=== PATIENT | female | born 1950 | race Caucasian/White ===

== ENCOUNTER → 2017-01-25 | Outpatient (CLI) | payer BC ==
--- NOTE | 2017-01-25 14:47 | DIAGNOSTIC IMAGING REPORT ---
LEFT KNEE 3 VIEWS HISTORY: Left knee pain COMPARISON: None. FINDINGS: There is no fracture or dislocation. No significant knee effusion. Mild chondrocalcinosis within the medial compartment. Mild osteoarthritis within the medial and patellofemoral compartments of the left knee. No radiopaque foreign bodies. IMPRESSION: 1. Mild osteoarthritis within the left knee. 2. Mild chondrocalcinosis within the medial compartment. 3. No fractures. Electronically signed by: Taj Jasmine M.D. 01/25/2017 2:46 PM Dictated Date/Time: 01/25/2017 2:43 PM
== END | disposition home or self-care (01) ==
LOC: C.LAB 14:12
PROVIDERS: ATTEND Family Medicine
DX: M25.561 Pain in right knee (principal)

== ENCOUNTER → 2017-01-28 | Outpatient (CLI) | payer BC ==
--- NOTE | 2017-01-28 14:41 | MAMMOGRAPHY REPORT ---
BILATERAL DIGITAL SCREENING MAMMOGRAM WITH CAD: 01/28/2017 CLINICAL HISTORY: Routine screening. Patient has no complaints. TECHNIQUE: Current study was also evaluated with a Computer Aided Detection (CAD) system. Bilateral CC and MLO views were obtained. COMPARISON: Comparison is made to exams dated: 01/28/2016 mammogram, 01/24/2015 mammogram, 01/26/2014 u ltrasound, 01/26/2014 mammogram, 01/23/2014 mammogram, and 01/17/2013 mammogram - [facility] enter. BREAST COMPOSITION: There are scattered areas of fibroglandular density in both breasts. FINDINGS: No suspicious masses, calcifications, or areas of architectural distortion are noted in ei ther breast. There has been no significant interval change compared to prior exams. Again noted is a round circumscribed benign-appearing 5 mm mass in the left upper outer quadrant, which was previous ly shown to represent a cyst on a prior 2013 ultrasound exam. A linear scar marker denotes a scar on the left upper outer breast. Scattered bilateral benign-appearing calcifications are stable. IMPRESSION: ACR BI-RADS CATEGORY 2: BENIGN There is no mammographic evidence of malignancy. A 1 year screening mammogram is recommended. The pa tient will receive written notification of the results. Approximately 10% of breast cancers are not detected with mammography. A negative mammographic report should not delay biopsy if a clinically suggestive mass is present. Iliana Lopez M.D. /:01/28/2017 12:10:52 Hydraulic Operator: Amelia MILLER(Alejandra)(Farhad)(BD), [facility] letter sent: Normal 1/2 BI-RADS Code: ACR BI-RADS Category 2: Benign
== END | disposition home or self-care (01) ==
LOC: C.MAMM 08:26
PROVIDERS: ATTEND Family Medicine
DX: Z12.31 Encounter for screening mammogram for malignant neoplasm of breast (principal)

== ENCOUNTER → 2017-12-01 | Outpatient (CLI) | payer BC ==
--- NOTE | 2017-12-01 13:20 | DIAGNOSTIC IMAGING REPORT ---
R KNEE 1 OR 2 VIEWS ROUTINE HISTORY: 67 years-old Female M25.561 acute right knee pain with history of right knee osteoarthritis COMPARISON: None available TECHNIQUE: 3 views of the right knee FINDINGS: Mild to moderate patellofemoral and medial compartment osteoarthritis with only minimal lateral compartment disease. Chondrocalcinosis. No acute fracture or dislocation. Trace knee joint effusion. IMPRESSION: 1. No acute fracture or dislocation. 2. Trace joint effusion with degenerative changes as above. 3. Chondrocalcinosis. The above report was generated using voice recognition software. It may contain grammatical, syntax or spelling errors. Electronically signed by: Cholo Mauricio M.D. 12/01/2017 1:19 PM Dictated Date/Time: 12/01/2017 1:18 PM
== END | disposition home or self-care (01) ==
LOC: C.RAD1850 13:04
PROVIDERS: ATTEND Family Medicine
DX: M25.561 Pain in right knee (principal); M17.11 Unilateral primary osteoarthritis, right knee; M11.261 Other chondrocalcinosis, right knee

== ENCOUNTER 2023-03-22 12:13 | Inpatient (IN) ==
[2023-03-22] MEDS: SODIUM CHLORIDE 0.9% 1000ML 1,000 ML IV SCH ×2 (12:41→18:28)
--- NOTE | 2023-03-22 12:46 | Emergency Department Note ---
Impression & Plan Ventricular tachycardia, Exertional angina ED Provider Note ED Provider Note NAME: RIK KIM AGE:72 SEX: Female : 1950 ARRIVES VIA: EMS INFORMANT: Patient ED PROVIDER(s): Raine Mims DO CHIEF COMPLAINT: VT, failed stress test HPI: This is a 72-year-old female presents emergency department from the cardiol y office where she was undergoing a stress test. Patient describes a month or more of exertional chest discomfort when mowing the lawn with her push mower with accompanying shortness of breath with exertion. She states she has had increased fatigue recently additionally. Patient reports significant family history 2 brothers requiring open heart surgery in her 50s as well as her father dying from a heart attack in his 50s. She had never previously had a stress test. And she reported the symptoms to her PCP and outpatient stress test was arranged. She states initially when she started the stress test she felt well, however during the stress test then she began to feel a discomfort and pressure in her chest. It was noted by staff in the office that she quickly thereafter developed ventricular tachycardia. When staff went to give IV amiodarone, the ventricular tachycardia broke spontaneously. No further VT during transport per EMS. EMS was contacted and patient transported here. EMS gave the patient aspirin additionally but her symptoms by time of transport had improved. Earnest dodson denies any recent fevers, chills, or illness. PAST MEDICAL HISTORY:See Below PAST SURGICAL HISTORY:See Below FAMILY HISTORY:See Below SOCIAL HISTORY:See Below HOME MEDICATIONS:See Below ALLERGIES:See Below VITALS:See Below PHYSICAL EXAMINATION: GENERAL: alert, well appearing, well nourished, no distress, non-toxic EYE EXAM: normal conjunctiva, PERRL and EOM's grossly intact OROPHARYNX: no exudate, no erythema, lips, buccal mucosa, and tongue normal and mucous membranes are moist NECK: supple, no nuchal rigidity, no adenopathy, non-tender LUNGS: Clear to auscultation. Normal chest wall mechanics, no w/r/r HEART: no murmurs, S1 normal and S2 normal ABDOMEN: abdomen soft, non-tender, normo-active bowel sounds, no masses, no rebound or guarding. BACK: Back is symmetrical on inspection and there is no deformity, no midline tenderness, no CVA tenderness. SKIN: no rashes, petechiae, orbruising UPPER EXTREMITIES: upper extremities are grossly normal. FROM, nml pulses b/l. LOWER EXTREMITIES: No pitting edema. FROM, nml pulses b/l. NEURO EXAM: Normal sensorium, cranial nerves II-XII grossly intact, normal speech, no facial droop,nogross weakness of arms, no gross weakness of legs. Gross sensation intact. No ataxia. Vital Signs: reviewed and remarkable Differential Diagnosis: Dysrhythmia, ACS, CAD, hypertensive urgency, electrolyte abnormality, dehydration, anxiety, GERD, as well as others were considered MEDICAL DECISION MAKING: This is a 72-year-old female brought by EMS from cardiology's office after developing symptoms and an episode of ventricular tachycardia during her stress test. Patient was asymptomatic on arrival and had no further ectopy or dysrhyth shelley while monitored in the emergency room. Labs drawn and sent, IV established, EKG and chest x-ray performed at bedside and interpreted by me. Case discussed with [facility] cardiology who had not been made aware the patient was being sent over. Case then discussed with [facility] hospitalist team, Dr. Jon. Dr. Jon did contact the sending industrial locomotive operator who had spoken to the [facility] industrial locomotive operator but did not relay this information to the emergency room. Patient remained hemodynamically stable while in the emergency room, had no recurrent symptoms. Labs and imaging otherwise reassuring. Consultation(s): 1225: Discussed with Dr. Lee, who not been advised the patient was being sent to the ER and did not know about the patient. 1337: Discussed with Dr. Jon, [facility] Hospitalist team. ER Treatment Provided: See below Diagnostics Interpreted By Me: -ECG: Normal sinus at 91, normal axis, normal intervals, nonspecific ST/T wave changes noted -Cardiac Monitoring: An order was placed for continuous cardiac monitoring. The monitor shows a rate of 88 with normal sinus rhythm. -Laboratory studies: As stated above and show below. -Imaging studies: X-ray Chest: A single view study of the chest was reviewed and was negative for cardiomegaly, focal infiltrate, effusion, pulmonary edema, or wide mediastinum. Triage Nursing Note Reviewed Prior/Outside Records Reviewed -office visit from cardiology reviewed Past Med/Surg History Medical History (Updated 03/22/23 @ 12:46 by Raine Mims DO) COVID-19 GERD (gastroesophageal reflux disease) Hypertension Osteoarthritis Scoliosis Sleep apnea cpap Spinal stenosis Surgical History (Updated 03/20/22 @ 12:58 by Lula Cardoza, RN) History of back surgery 06/2021 History of cataract surgery bilat History of cholecystectomy History of colonoscopy History of detached retina repair History of dilatation and curettage History of esophagogastroduodenoscopy (EGD) History of lumpectomy of left breast Status post JORGITO-BSO Family History Sister Family history of diabetes mellitus Social History Smoking Status: Never smoker Second Hand Exposure: No; Do You Dip or Chew Tobacco: No; Hx Alcohol Use: Yes Alcohol type: beer and wine Hx Substance Use: No Preferred Language: [place] Communication Ability: Effective Telemarketing Supervisor Required: No Beliefs That Will Affect Care: None Current Living Situation: Spouse Current Living Situation Comment: Lives at home with Other Information That Helps Us Care for You: No Feels Safe at Home: Yes Safety Concerns: Feels Safe At This Time Assistive Devices: Glasses Allergies Allergies Allergy/AdvReac Type Severity Reaction Status Date / Time No Known Allergies Allergy Verified 03/20/22 12:56 Home Meds Home Medications Medication Instructions Recorded Confirmed diclofenac sodium 75 mg 75 mg PO QAM 06/23/19 03/22/23 tablet,delayed release lactobacillus combination no.9 4 4,000 mmu cells PO QAM 06/23/19 03/22/23 billion cell capsule (Adult 50 Plus Probiotic) omeprazole 20 mg capsule,delayed 20 mg PO DAILY PRN Heartburn 07/30/20 03/22/23 release cholecalciferol (vitamin D3) 10 400 units PO QAM 02/21/21 03/22/23 mcg (400 unit) capsule lisinopril 10 mg tablet 10 mg PO QAM 02/21/21 03/22/23 multivitamin 1 tab PO QAM 02/21/21 03/22/23 omega 1-pym-alw-fish oil 1,000 mg 1 cap PO QAM 02/21/21 03/22/23 (120 mg-180 mg) capsule (Fish Oil) Previous Rx's Medication Instructions Recorded Auto Titrating CPAP #1 ea 09/01/19 CPAP Supplies #1 ea 07/30/20 Results & Data (ED) Vital Signs Vital Signs - 24 hr 03/22/23 12:05 03/22/23 12:05 03/22/23 12:42 Temperature 36.5 C Temperature Source Oral Pulse Rate 98 H 91 H Respiratory Rate 23 Respiratory Effort / Characteristics Non-Labored Spontaneous Respiratory Depth Normal Respiratory Pattern Regular Blood Pressure 198/119 H Blood Pressure Mean 145 Pulse Oximetry 99 99 Oxygen Delivery Method Room Air Room Air Oxygen Flow Rate 0 Sepsis Recent Fever Within 48 Hours No Sepsis New/Unexplained Change in Mental Status N/A Sepsis Action Taken by Nursing No Action Required Laboratory Data 03/22/23 12:37 03/22/23 12:37 Lab Results 03/22/23 03/22/23 03/22/23 Range/Units 12:37 12:37 12:37 WBC 9.22 (4.8-10.8) K/ul RBC 4.82 (4.20-5.40) M/uL Hgb 13.4 (12.0-16.0) g/dl Hct 39.9 (37.0-47.0) % MCV 82.8 (80.0-100.0) fL MCH 27.8 (25.0-34.0) pg MCHC 33.6 (32.0-36.0) g/dL RDW Std Deviation 52.1 H (36.4-46.3) fL RDW Coeff of Luis 17.2 H (11.5-14.5) % Plt Count 268 (130-400) K/uL MPV 10.3 (9.4-12.4) fL Immature Gran % (Auto) 0.2 % Neut % (Auto) 52.7 % Lymph % (Auto) 37.3 % [place] % (Auto) 6.2 % Eos % (Auto) 2.8 % Baso % (Auto) 0.8 % Neut # (Auto) 4.86 (1.40-6.50) K/uL Lymph # (Auto) 3.44 H (1.2-3.4) K/uL [place] # (Auto) 0.57 (0.11-0.59) K/uL Eos # (Auto) 0.26 (0-0.50) K/uL Baso # (Auto) 0.07 (0-0.2) K/uL Immature Gran # (Auto) 0.02 (0.01-0.20) K/uL PT Cancelled INR Cancelled APTT (21.0-31.0) Seconds PTT Ratio Sodium 137 (136-145) mmol/L Potassium 4.2 (3.5-5.1) mmol/L Chloride 103 (98-107) mmol/L Carbon Dioxide 24 (21-32) mmol/L Anion Gap 10 (3-11) BUN 20 (6-23) mg/dl Creatinine 1.07 (0.6-1.2) mg/dl Est Cr Clr Drug Dosing 48.5 ml/min Est GFR ( Amer) 59.2 ml/min Est GFR (Non-Af Amer) 51.1 ml/min BUN/Creatinine Ratio 18.7 (10-20) Glucose 100 H (70-99(Fasting)) mg/dl Calcium 9.7 (8.6-10.3) mg/dl Magnesium 1.9 (1.7-2.4) mg/dl Total Bilirubin 0.4 (0.2-1.0) mg/dl AST 21 (13-39) U/L ALT 24 (7-52) U/L Alkaline Phosphatase 94 (34-104) U/L Troponin I High Sens 5.6 (0-14) pg/ml Total Protein 7.6 (6.0-8.3) gm/dl Albumin 4.4 (3.4-5.0) gm/dl Globulin 3.2 (2.5-4.0) gm/dl Albumin/Globulin Ratio 1.4 (0.9-2) Lipase 53 (11-82) U/L TSH (0.300-4.500) uIu/ml SARS-CoV-2 (PCR) (Negative) 03/22/23 03/22/23 03/22/23 Range/Units 12:37 13:08 13:08 WBC (4.8-10.8) K/ul RBC (4.20-5.40) M/uL Hgb (12.0-16.0) g/dl Hct (37.0-47.0) % MCV (80.0-100.0) fL MCH (25.0-34.0) pg MCHC (32.0-36.0) g/dL RDW Std Deviation (36.4-46.3) fL RDW Coeff of Luis (11.5-14.5) % Plt Count (130-400) K/uL MPV (9.4-12.4) fL Immature Gran % (Auto) % Neut % (Auto) % Lymph % (Auto) % [place] % (Auto) % Eos % (Auto) % Baso % (Auto) % Neut # (Auto) (1.40-6.50) K/uL Lymph # (Auto) (1.2-3.4) K/uL [place] # (Auto) (0.11-0.59) K/uL Eos # (Auto) (0-0.50) K/uL Baso # (Auto) (0-0.2) K/uL Immature Gran # (Auto) (0.01-0.20) K/uL PT 10.3 INR 0.9 APTT 26.6 (21.0-31.0) Seconds PTT Ratio 0.9 Sodium (136-145) mmol/L Potassium (3.5-5.1) mmol/L Chloride (98-107) mmol/L Carbon Dioxide (21-32) mmol/L Anion Gap (3-11) BUN (6-23) mg/dl Creatinine (0.6-1.2) mg/dl Est Cr Clr Drug Dosing ml/min Est GFR ( Amer) ml/min Est GFR (Non-Af Amer) ml/min BUN/Creatinine Ratio (10-20) Glucose (70-99(Fasting)) mg/dl Calcium (8.6-10.3) mg/dl Magnesium (1.7-2.4) mg/dl Total Bilirubin (0.2-1.0) mg/dl AST (13-39) U/L ALT (7-52) U/L Alkaline Phosphatase (34-104) U/L Troponin I High Sens (0-14) pg/ml Total Protein (6.0-8.3) gm/dl Albumin (3.4-5.0) gm/dl Globulin (2.5-4.0) gm/dl Albumin/Globulin Ratio (0.9-2) Lipase (11-82) U/L TSH 1.219 (0.300-4.500) uIu/ml SARS-CoV-2 (PCR) (Negative) 03/22/23 Range/Units 14:00 WBC (4.8-10.8) K/ul RBC (4.20-5.40) M/uL Hgb (12.0-16.0) g/dl Hct (37.0-47.0) % MCV (80.0-100.0) fL MCH (25.0-34.0) pg MCHC (32.0-36.0) g/dL RDW Std Deviation (36.4-46.3) fL RDW Coeff of Luis (11.5-14.5) % Plt Count (130-400) K/uL MPV (9.4-12.4) fL Immature Gran % (Auto) % Neut % (Auto) % Lymph % (Auto) % [place] % (Auto) % Eos % (Auto) % Baso % (Auto) % Neut # (Auto) (1.40-6.50) K/uL Lymph # (Auto) (1.2-3.4) K/uL [place] # (Auto) (0.11-0.59) K/uL Eos # (Auto) (0-0.50) K/uL Baso # (Auto) (0-0.2) K/uL Immature Gran # (Auto) (0.01-0.20) K/uL PT INR APTT (21.0-31.0) Seconds PTT Ratio Sodium (136-145) mmol/L Potassium (3.5-5.1) mmol/L Chloride (98-107) mmol/L Carbon Dioxide (21-32) mmol/L Anion Gap (3-11) BUN (6-23) mg/dl Creatinine (0.6-1.2) mg/dl Est Cr Clr Drug Dosing ml/min Est GFR ( Amer) ml/min Est GFR (Non-Af Amer) ml/min BUN/Creatinine Ratio (10-20) Glucose (70-99(Fasting)) mg/dl Calcium (8.6-10.3) mg/dl Magnesium (1.7-2.4) mg/dl Total Bilirubin (0.2-1.0) mg/dl AST (13-39) U/L ALT (7-52) U/L Alkaline Phosphatase (34-104) U/L Troponin I High Sens (0-14) pg/ml Total Protein (6.0-8.3) gm/dl Albumin (3.4-5.0) gm/dl Globulin (2.5-4.0) gm/dl Albumin/Globulin Ratio (0.9-2) Lipase (11-82) U/L TSH (0.300-4.500) uIu/ml SARS-CoV-2 (PCR) NEGATIVE (Negative) Administered Medications Atorvastatin Calcium (Atorvastatin 40 Mg Tab) 40 mg PO QAM [facility] Stop: 04/21/23 17:59 Last Admin: 03/22/23 18:49 Dose: 40 mg Documented By: BURAK Sodium Chloride (Nss 1000ml) 1,000 mls @ 125 mls/hr IV .Q8H [facility] Stop: 04/21/23 12:29 Last Admin: 03/22/23 18:28 Dose: 125 mls/hr Documented By: Infusion: 03/22/23 18:28 Dose: 125 mls/hr Documented By: Admin: 03/22/23 12:41 Dose: 125 mls/hr Documented By: CORTES Heparin Sodium/Dextrose (Heparin Sodium/Dextrose) 25,000 units in 500 mls @ 24 mls/hr IV .[id number] [facility]; Protocol Stop: 04/21/23 18:14 Last Admin: 03/22/23 18:21 Dose: 1,200 units/hr, 24 mls/hr Documented By: JAYDEN Co-signed By: BURAK Metoprolol Tartrate (Metoprolol Tartrate 25 Mg Tab) 25 mg PO BID [facility] Stop: 04/21/23 20:59 Last Admin: 03/22/23 19:57 Dose: 25 mg Documented By: RADHA Discontinued Medications Fentanyl Citrate (Fentanyl Citrate Pf 100 Mcg/2 Ml Vial) Confirm Administered Dose 100 mcg .ROUTE .STK-MED ONE Stop: 03/22/23 16:33 Last Increment: 03/22/23 17:08 Dose: 25 mcg Documented By: TRIP Heparin Sodium (Porcine) (Heparin (Porcine) 1000 Unit/Ml 10 Ml (Field Pipelines Supervisor Use Only)) Confirm Administered Dose 10,000 units .ROUTE .STK-MED ONE Stop: 03/22/23 16:33 Last Admin: 03/22/23 17:08 Dose: 5,000 units Documented By: TRIP Heparin Sodium/Dextrose (Heparin Iv Adult Wt-Based Standard *No* Bolus Protocol) 1 each IV ONE STA; Protocol Stop: 03/22/23 17:52 Last Admin: 03/22/23 18:29 Dose: 1 each Documented By: JAYDEN Heparin Sodium/Sodium Chloride (Heparin In Nss Infusion 1000 Unit/500 Ml (2 U/Ml) Bag) Confirm Administered Dose 4,000 units IV .STK-MED ONE Stop: 03/22/23 16:34 Last Admin: 03/22/23 17:09 Dose: 4,000 units Documented By: JOSEPH Hydralazine HCl (Hydralazine Hcl 20 Mg/Ml Vial) Confirm Administered Dose 20 mg .ROUTE .STK-MED ONE Stop: 03/22/23 16:52 Last Increment: 03/22/23 17:09 Dose: 10 mg Documented By: TRIP Magnesium Sulfate/Dextrose (Magnesium Sulfate / D5w) 1 gm in 100 mls @ 100 mls/hr IV NOW STA Stop: 03/22/23 14:39 Last Infusion: 03/22/23 14:53 Dose: 0 mls/hr Documented By: Admin: 03/22/23 13:47 Dose: 100 mls/hr Documented By: CORTES Midazolam HCl (Midazolam Hcl 1 Mg/Ml 2ml Vial) Confirm Administered Dose 2 mg .ROUTE .STService Seeking-MED ONE Stop: 03/22/23 16:33 Last Increment: 03/22/23 17:08 Dose: 1 mg Documented By: TRIP Nicardipine HCl (Nicardipine Hcl Inj 2.5 Mg/Ml 10 Ml Amp) Confirm Administered Dose 25 mg .ROUTE .STService Seeking-MED ONE Stop: 03/22/23 16:33 Last Admin: 03/22/23 17:08 Dose: 25 mg Documented By: JOSEPH Nitroglycerin/Dextrose (Nitroglycerin/D5w 100mcg/Ml 20ml Syr) Confirm Administered Dose 2,000 mcg .ROUTE .STService Seeking-MED ONE Stop: 03/22/23 16:34 Last Admin: 03/22/23 17:09 Dose: 2,000 mcg Documented By: JOSEPH Imaging Data Radiologist's Impression: Chest X-Ray 03/22/23 12:22 SINGLE VIEW CHEST CLINICAL HISTORY: Atypical chest pain. FINDINGS: An AP, portable, upright chest radiograph is compared to study dated 01/01/2023. The cardiomediastinal silhouette is top normal for projection noting atherosclerotic calcification of the thoracic aorta. The lungs and pleural spaces are clear noting mild bibasilar scarring/atelectasis. No pneumothorax is seen. The skeletal structures are osteopenic. The bony thorax is grossly intact. IMPRESSION: No active disease in the chest. ACT 112: Negative or not required by law. Electronically signed by: Tj Hamlin M.D. 03/22/2023 1:03 PM Discharge Plan Visit Data Chief Complaint: Cardiac Assessment ED Provider: Raine Mims Discharge Problem: Ventricular tachycardia, Exertional angina Patient Disposition: Admitted As Inpatient Discharge Instructions Interventions: ED Discharge Assessment Last Done: 03/22/23 16:44
[2023-03-22 12:57] LABS: Basophils # (auto) 0.07 K/uL (0-0.2); Basophils % (auto) 0.8 %; Eosinophils # (auto) 0.26 K/uL (0-0.50); Eosinophils % (auto) 2.8 %; Hematocrit (blood only) 39.9 % (37.0-47.0); Hemoglobin 13.4 g/dl (12.0-16.0); Immature Granulocytes # (auto) 0.02 K/uL (0.01-0.20); Immature Granulocytes % (auto) 0.2 %; Lymphocytes # (auto) 3.44 K/uL (1.2-3.4); Lymphocytes % (auto) 37.3 %; Mean Corpuscular Hemoglobin 27.8 pg (25.0-34.0); Mean Corpuscular Hgb Conc 33.6 g/dL (32.0-36.0); Mean Corpuscular Volume 82.8 fL (80.0-100.0); Mean Platelet Volume 10.3 fL (9.4-12.4); Monocytes # (auto) 0.57 K/uL (0.11-0.59); Monocytes % (auto) 6.2 %; Neutrophils # (auto) 4.86 K/uL (1.40-6.50); Neutrophils % (auto) 52.7 %; Platelet Count 268 K/uL (130-400); RDW Coefficient of Variation 17.2 % (11.5-14.5); RDW Standard Deviation 52.1 fL (36.4-46.3); Red Blood Count 4.82 M/uL (4.20-5.40); White Blood Count 9.22 K/ul (4.8-10.8)
--- NOTE | 2023-03-22 13:04 | XRay Report ---
SINGLE VIEW CHEST CLINICAL HISTORY: Atypical chest pain. FINDINGS: An AP, portable, upright chest radiograph is compared to study dated 01/01/2023. The cardiom ediastinal silhouette is top normal for projection noting atherosclerotic calcification of the thorac ic aorta. The lungs and pleural spaces are clear noting mild bibasilar scarring/atelectasis. No pneum othorax is seen. The skeletal structures are osteopenic. The bony thorax is grossly intact. IMPRESSION: No active disease in the chest. ACT 112: Negative or not required by law. Electronically signed by: Tj Hamlin M.D. 03/22/2023 1:03 PM
[2023-03-22 13:10] LABS: Albumin Globulin Ratio 1.4 (0.9-2); Albumin Level 4.4 gm/dl (3.4-5.0); BUN Creatinine Ratio 18.7 (10-20); Bilirubin,Total 0.4 mg/dl (0.2-1.0); Calcium 9.7 mg/dl (8.6-10.3); Creatinine Clr Calc Pharmacy 48.5 ml/min; Est GFR (African American) 59.2 ml/min; Est GFR (Non-African American) 51.1 ml/min; Globulin 3.2 gm/dl (2.5-4.0); Magnesium 1.9 mg/dl (1.7-2.4); Potassium 4.2 mmol/L (3.5-5.1); Total Protein 7.6 gm/dl (6.0-8.3)
[2023-03-22 13:16] LABS: Troponin I High Sensitivity 5.6 pg/ml (0-14)
--- NOTE | 2023-03-22 13:39 | History & Physical Report ---
Date of Service March 22, 2023 Assessment & Plan (1) Ventricular tachycardia: Plan: Sustained VT in setting of outpatient stress echo No need for IV amiodarone unless she goes back into VT Aim K > 4, Mg > 2 TTE performed as outpatient (reportedly normal) therefore repeat deferred. Consult cardiology - NPO until decision regarding cardiac catheterization (2) Exertional angina: Plan: ASA given en route to ER Concerning symptoms for crescendo angina No current symptoms and initial troponin negative therefore IV heparin deferred Defer starting metoprolol to cardiology Consult cardiology (3) Obstructive sleep apnea syndrome: Plan: CPAP HS (4) GERD (gastroesophageal reflux disease): Plan: Switch omeprazole to pantoprazole per hospital formulary Plan VTE Prophyalxis - deferred pending cardiac cath Diet - NPO Disposition - admit to PCU Admission and Anticipated Discharge Date Admission Date: March 22, 2023 History of Present Illness Chief Complaint: Sustained ventricular tachycardia Primary Care Provider: DO Tanja Mathis Manuel is a 72 year old female who 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 She is currently asymptomatic with no chest pain, shortness of breath, dizziness. [place] her normal self prior to the stress test, no acute exacerbation of her pain/shortness of breath in the last 48 hours. While in ventricular tachycardia her funny feeling in her chest/throat came back and felt short of breath - lasted for around 10 minutes. Had to lie down right away. Associated flushing of skin but no profuse diaphoresis, no nausea or vomiting. No palpitations, presyncope. Increasing shortness of breath on exertion with funny feeling in her chest. Improves on rest. Getting more frequent and with less exertion - cutting back on her usual exercise. Once in a while feels it comes on with rest. Ongoing for the last few months. No presyncope, claudication, palpitations, orthopnea or PND. Wears CPAP at night for the last few years. Allergies Allergy/AdvReac Type Severity Reaction Status Date / Time No Known Allergies Allergy Verified 03/20/22 12:56 Home Medications Medication Instructions Recorded Confirmed Type diclofenac sodium 75 mg 75 mg PO QAM 06/23/19 03/22/23 History tablet,delayed release lactobacillus combination no.9 4 4,000 mmu cells PO QAM 06/23/19 03/22/23 History billion cell capsule (Adult 50 Plus Probiotic) Auto Titrating CPAP #1 ea 09/01/19 03/20/22 Rx CPAP Supplies #1 ea 07/30/20 03/20/22 Rx omeprazole 20 mg capsule,delayed 20 mg PO DAILY PRN Heartburn 07/30/20 03/22/23 History release cholecalciferol (vitamin D3) 10 400 units PO QAM 02/21/21 03/22/23 History mcg (400 unit) capsule lisinopril 10 mg tablet 10 mg PO QAM 02/21/21 03/22/23 History multivitamin 1 tab PO QAM 02/21/21 03/22/23 History omega 2-qhq-ugm-fish oil 1,000 mg 1 cap PO QAM 02/21/21 03/22/23 History (120 mg-180 mg) capsule (Fish Oil) Past Med/Surg History Medical History (Updated 03/22/23 @ 12:46 by Raine Mims DO) COVID-19 GERD (gastroesophageal reflux disease) Hypertension Osteoarthritis Scoliosis Sleep apnea cpap Spinal stenosis Surgical History (Updated 03/20/22 @ 12:58 by Lula Cardoza RN) History of back surgery 06/2021 History of cataract surgery bilat History of cholecystectomy History of colonoscopy History of detached retina repair History of dilatation and curettage History of esophagogastroduodenoscopy (EGD) History of lumpectomy of left breast Status post JORGIOT-BSO Family History Sister Family history of diabetes mellitus Social History Smoking Status: Never smoker Second Hand Exposure: No; Do You Dip or Chew Tobacco: No; Hx Alcohol Use: Yes Hx Substance Use: No Preferred Language: Salvadorean Communication Ability: Effective Assessment Clinician Required: No Beliefs That Will Affect Care: None Current Living Situation: Spouse Feels Safe at Home: Yes Assistive Devices: Glasses Review of Systems Review of Systems: All systems reviewed & are unremarkable except as noted in HPI & below Physical Exam Constitutional: WD/WN, vitals as above Eyes: PERRL, conjunctivae normal, anicteric sclerae ENMT: external ear and nose normal, oropharynx normal Neck: trachea midline, no thyromegaly Respiratory: normal respiratory effort, lungs clear to auscultation Cardiovascular: RRR, no murmur, no edema Gastrointestinal (Abdomen): normal bowel sounds, soft, nontender, no hepatosplenomegaly Musculoskeletal: no cyanosis or clubbing, extremities motor strength 5/5 Skin: no rashes, warm and dry Neurologic: moves all extremities and awake; not confused Psychiatric: A+Ox3, euthymic affect Results & Data Results & Data Vital Signs (Past 12 Hours) Vital Signs Temp Pulse Resp BP Pulse Ox O2 Del Method O2 Flow Rate 03/22/23 12:42 91 H 03/22/23 12:05 99 Room Air 0 03/22/23 12:05 36.5 C 98 H 23 198/119 H 99 Room Air Laboratory Results Abnormal lab results 03/22/23 03/22/23 Range/Units 12:37 12:37 RDW Std Deviation 52.1 H (36.4-46.3) fL RDW Coeff of Luis 17.2 H (11.5-14.5) % Lymph # (Auto) 3.44 H (1.2-3.4) K/uL Glucose 100 H (70-99(Fasting)) mg/dl Diagnostic Findings SINGLE VIEW CHEST CLINICAL HISTORY: Atypical chest pain. FINDINGS: An AP, portable, upright chest radiograph is compared to study dated 01/01/2023. The cardiomediastinal silhouette is top normal for projection noting atherosclerotic calcification of the thoracic aorta. The lungs and pleural spaces are clear noting mild bibasilar scarring/atelectasis. No pneumothorax is seen. The skeletal structures are osteopenic. The bony thorax is grossly intact. IMPRESSION: No active disease in the chest. Medications Administered ER Medications Given: NSS @ 125ml/hr ECG Rate (beats per minute): 91 Rhythm: normal sinus Findings: + nonspecific-ST abn Comparison ECG Date: no prior available Code Status & VTE Plan Code Status Full VTE Prophylaxis Plan VTE Prophylaxis will be ordered: Yes PG Care Time/CCT Total # of Minutes Spent Total Time Spent with Patient: Total time spent is greater than 50% in coordination of care (as documented) at patient's floor/unit and/or counseling patient: Coding Level of Care Code 74193 INT INP/OBS CARE 3/75MIN Diagnoses Ventricular tachycardia I47.20 Exertional angina I20.8 Obstructive sleep apnea syndrome G47.33 GERD (gastroesophageal reflux disease) K21.9
[2023-03-22] MEDS ORDERED: MAGNESIUM SULFATE / D5W 1 GM/100 ML BAG IV STA (13:40)
[2023-03-22 14:05] LABS: INR 0.9 (0.9-1.1); Prothrombin Time 10.3 Seconds (9.0-12.0)
[2023-03-22 14:37] LABS: Partial Thromboplastin Ratio 0.9; Partial Thromboplastin Time 26.6 Seconds (21.0-31.0)
[2023-03-22] MEDS ORDERED: fentaNYL citrate PF 100 MCG/2 ML VIAL ONE (16:32)
[2023-03-22] MEDS ORDERED: MIDAZOLAM HCL 1 MG/ML 2ML VIAL ONE (16:32)
[2023-03-22] MEDS ORDERED: HEPARIN (PORCINE) 1000 UNIT/ML 10 ML (CATH LAB USE ONLY) ONE (16:32)
[2023-03-22] MEDS ORDERED: niCARdipine HCL INJ 2.5 MG/ML 10 ML AMP ONE (16:32)
[2023-03-22] MEDS ORDERED: NITROGLYCERIN/D5W 100MCG/ML 20ML SYR ONE (16:33)
[2023-03-22] MEDS ORDERED: hydrALAZINE HCL 20 MG/ML VIAL ONE (16:51)
[2023-03-22] MEDS ORDERED: NITROGLYCERIN SL 0.4 MG/TAB TAB SL PRN (17:43)
[2023-03-22] MEDS ORDERED: Heparin IV Adult Wt-Based Standard *NO* Bolus Protocol IV STA (17:51)
--- NOTE | 2023-03-22 17:55 | Pre Anesthesia Assessment ---
Date of Service March 22, 2023 Pre Sedation Assessment Vital Signs Temp Pulse Pulse Resp BP BP Pulse Ox 03/22/23 14:21 85 20 157/93 H 98 03/22/23 12:42 91 H 03/22/23 12:05 99 03/22/23 12:05 36.5 C 98 H 23 198/119 H 99 O2 Del Method O2 Flow Rate 03/22/23 14:21 Room Air 03/22/23 12:42 03/22/23 12:05 Room Air 0 03/22/23 12:05 Room Air Cardiovascular RRR, no murmur, no edema Respiratory normal respiratory effort, lungs clear to auscultation Pre-Sedation Airway Assessment Smoking Status: Never smoker Mallampati II ASA 3 Notes The planned sedation has been discussed with the patient. Informed Consent was obtained. I have identified the patient, determined the appropriateness of sedation and have assessed the patient immediately prior to the procedure. All medicine(s) and interventions are by my order. [facility] [place] Procedure Codes (Charges) Indication for Procedure Indication for procedure: Ventricular tachycardia with stress test Sedation/Anesthesia Procedure 1: Sedation/Anesthesia: 29396 Mod Sedation by the same physician;Init15 Min Child Age 5 & Up (Initial 15 min, start time 1653) Total Sedation Time (minutes): 13
--- NOTE | 2023-03-22 17:56 | Post Anesthesia Assessment ---
Date of Service March 22, 2023 Post Sedation Assessment Vital Signs Temp Pulse Pulse Resp BP BP Pulse Ox 03/22/23 14:21 85 20 157/93 H 98 03/22/23 12:42 91 H 03/22/23 12:05 99 03/22/23 12:05 36.5 C 98 H 23 198/119 H 99 O2 Del Method O2 Flow Rate 03/22/23 14:21 Room Air 03/22/23 12:42 03/22/23 12:05 Room Air 0 03/22/23 12:05 Room Air Recovery Score Activity: Moves 4 extremities Respiration: Deep Breath/Cough Circulation: +/-20% PreAnes Value Consciousness: Fully Awake Oxygen Saturation: > 92% On Room Air Discharge Sedation Level of Care: Fast Track Phase II Post Sedation Plan On clinical assessment, the patient appears to have tolerated the sedation without complications. Patient is recovering as anticipated. Patient will continue to be monitored by nursing and may be discharged when sedation discharge criteria are met per below protocol. Upon Completions of procedure up to 15 minutes continue every 5 minute vital signs and the P.A.R. score; then discharge to a Phase I or Fast Track to Phase II per the following guidelines: * Discharge Patient to appropriate Phase II area if PAR is 8 or greater or return to pre- procedure baseline. The post - procedure orders will be as directed. * If PAR score is less than 8 or not return to pre-procedure baseline then patient will follow Phase I monitoring till PAR is reached for Phase II. The Phase I may be done in procedure room or may call to secure a Phase I area. * If naloxone or flumazenil are used for reversal, hold in Phase I for continued monitoring from when last reversal dose was given for a minimum of 60 minutes or longer pending the nurse and/or physician discretion of patient condition before discharge to Phase II. Please call the Sedation Physician to re-evaluate and complete post-note for discharge to Phase II area. Do NOT discharge from procedure sedation or Phase 1 until post- sedation evaluation note is complete by procedure /sedation MD Sedation Discharge Instructions to be given to the patient at discharge to home. [facility] [place] Procedure Codes (Charges) Indication for Procedure Indication for procedure: Ventricular tachycardia with stress test Sedation/Anesthesia Procedure 1: Sedation/Anesthesia: 53501 Mod Sedation by the same physician;Init15 Min Child Age 5 & Up (Initial 15 min, start time 1653 end time 1706) Total Sedation Time (minutes): 13
[2023-03-22] MEDS ORDERED: ATORVASTATIN 40 MG TAB PO SCH (18:00)
--- NOTE | 2023-03-22 18:04 | Cardiac Catheterization ---
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, fills via left to left collateralization) Circumflex (% Stenosis): Proximal (Proximal 50 to 70%) OM1 (% Stenosis): Ostial (100%, small vessel) OM2 (% Stenosis): Proximal (80 to 90%) RCA (% Stenosis): Mid (70 to 80%) and Distal (Diffuse up to 50%) R PDA (% Stenosis): Normal (Diffuse mild and mid 80 to 90%) R PL1 (% Stenosis): Normal Diagnostic Physicians Name: Carlos Alberto Minor MD, PhD Closure Device Percutaneous Entry Location: Radial Closure Device: Radial Band Recommendations: Medical Therapy and/or Counseling and CABG Cardiac Cath Procedure Full Procedure Date March 22, 2023 Pre-Procedure Diagnosis Pre-Procedure Diagnosis: Arrhythmia and Cardiothoracic Symptom (Typical anginal chest pain, abnormal stress test) AUC Score AUC Score: 07 Post-Procedure Diagnosis Post-Procedure Diagnosis: Severe CAD Procedure(s) Performed Procedure(s) Performed: Coronary Angiography Is Manager Carlos Alberto Minor MD, PhD Estimated Blood Loss Estimated Blood Loss: None (5 mL) Medication(s) Medication(s): Fentanyl, Heparin, Lidocaine 1%, Nicardipine, Nitroglycerin and Versed Summary of Findings Brief description: Patient was brought to the cardiac catheterization suite where she was shaved and prepped in a sterile fashion. Sedated using IV Versed and fentanyl. Soft tissues of the right wrist were anesthetized using 2 mL of 1% Xylocaine. The right radial artery was accessed using modified Seldinger technique and a 6 [place] radial artery glide sheath was placed. Patient was provided anticoagulation with IV heparin and antispasmodics including nitroglycerin and nicardipine. All catheters were advanced and exchanged over a 0.035 J-tip wire. Left coronary angiography was performed in orthogonal views using a 5 [place] 4 diagnostic catheter. Right coronary angiography was performed in orthogonal views using a 5 [place] 4 diagnostic catheter. Diagnostic catheters were removed. Radial artery sheath was removed. Hemostasis was obtained using the TR band. Patient remained hemodynamically stable and asymptomatic. She was returned to the recovery area. This ended the case. Coronary angiography findings: QXH-lijow-npnbudp vessel trifurcating into LAD, ramus, and circumflex. No angiographically significant disease. LAD-large caliber and transapical vessel. Ostial to proximal segment has a 30% stenosis. There is a long first diagonal which has ostial to proximal 100% chronic total occlusion. The vessel beyond the occlusion is seen to fill late via left to left collateralization. At this level, the mid LAD also has an eccentric 80% stenosis. The remainder of the LAD has no angiographically significant disease until the apex where the vessels becomes small and bifurcate. They appear to be severely and diffusely diseased limited to the apical segment. Ramus-this is large caliber and reaches near the apex. Bifurcates distally. The proximal segment to the mid segment has diffuse disease of 70 to 80% stenosis. LCx-large caliber and nondominant. Travels in the AV groove where the proximal segment has a focal 50 to 70% stenosis and then gives a small subtotally occluded OM. Mid vessel has diffuse mild disease and is relatively short. It provides a large atrial branch and at the same level there is a large caliber long OM 2. This vessel has proximal 80 to 90% stenosis. RCA-large caliber and dominant vessel. Mid segment has 70 to 80% stenosis. The distal epicardial vessel has diffuse less than 50% stenosis. It bifurcates into a medium caliber posterior lateral branch and a medium to large caliber PDA. The PDA has diffuse mild disease with a mid segment stenosis appearing 80 to 90% in some views. Summary: 1. Severe multivessel coronary artery disease 2. Recommend "heart team" evaluation at tertiary center regarding coronary artery bypass grafting versus multivessel PCI. 3. Initiate guideline directed medical therapy for secondary prevention of coronary disease. Low-dose aspirin and lisinopril have previously been prescribed. We will add high intensity statin therapy with a atorvastatin 40 mg daily and begin beta-harvinder. Hemodynamics Rest Ao:: 151/120 mmHg Final Ao: 132/82 mmHg LV: Not performed Recommendations Recommendations: Medical Therapy and/or Counseling and CABG Radiation Exposure (mGy) 528 mGy, fluoroscopy time 1.7 minutes Contrast (mls) 60 Anesthesia 1 mg IV Versed, 25 mcg IV fentanyl. Start time 1653, end time 1706 Procedural Complication(s) None Disposition Recovery Room\\PACU I attest to the content of the Intraoperative Record and any orders documented therein. Any exceptions are noted below. [facility] Card Cath Procedure Codes Cardiac Catheterization Procedure 1: Cardiovascular Cath Procedures: 10877 Coronaries Moderate Sedation Procedure 1: Sedation/Anesthesia: 75260 Mod Sedation by the same physician;Init15 Min Child Age 5 & Up (Initial 15 minutes, start time 1653, end time 1706) PG Care Time/CCT Total # of Minutes Spent Total Time Spent with Patient: Total time spent is greater than 50% in coordination of care (as documented) at patient's floor/unit and/or counseling patient:
[2023-03-22] MEDS ORDERED: HEPARIN SODIUM/DEXTROSE 25,000 UNITS/500 ML BAG IV SCH (18:15)
--- NOTE | 2023-03-22 19:37 | Electrocardiogram Report ---
Test Reason : Blood Pressure : / mmHG Vent. Rate : 091 BPM Atrial Rate : 091 BPM P-R Int : 138 ms QRS Dur : 070 ms QT Int : 344 ms P-R-T Axes : 062 015 028 degrees QTc Int : 423 ms Normal sinus rhythm Nonspecific ST and T wave abnormality Abnormal ECG No previous ECGs available Confirmed by Miguel Angel Lee ([id number]) on 03/22/2023 7:37:38 PM Referred By: Confirmed By:Arnoldo Lee
--- NOTE | 2023-03-22 20:59 | Discharge Summary ---
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 She is currently asymptomatic with no chest pain, shortness of breath, dizziness. [place] her normal self prior to the stress test, no acute exacerbation of her pain/shortness of breath in the last 48 hours. While in ventricular tachycardia her funny feeling in her chest/throat came back and felt short of breath - lasted for around 10 minutes. Had to lie down right away. Associated flushing of skin but no profuse diaphoresis, no nausea or vomiting. No p alpitations, presyncope. Increasing shortness of breath on exertion with funny feeling in her chest. Improves on rest. Getting more frequent and with less exertion - cutting back on her usual exercise. Once in a while feels it comes on with rest. Ongoing for the last few months. No presyncope, claudication, palpitations, orthopnea or PND. Wears CPAP at night for the last few years. Admission Exam Per Admitting Provider Constitutional: WD/WN, vitals as above Eyes: PERRL, conjunctivae normal, anicteric sclerae ENMT: external ear and nose normal, oropharynx normal Neck: trachea midline, no thyromegaly Respiratory: normal respiratory effort, lungs clear to auscultation Cardiovascular: RRR, no murmur, no edema Gastrointestinal (Abdomen): normal bowel sounds, soft, nontender, no hepatosplenomegaly Musculoskeletal: no cyanosis or clubbing, extremities motor strength 5/5 Skin: no rashes, warm and dry Neurologic: moves all extremities and awake; not confused Psychiatric: A+Ox3, euthymic affect Principal Diagnosis Sustained ventricular tachycardia Severe multivessel coronary artery disease Discharge Exam exam not repeated as admitted/discharged same day within 8 hours Discharge Data Allergies Allergy/AdvReac Type Severity Reaction Status Date / Time No Known Allergies Allergy Verified 03/20/22 12:56 Consultations 03/22/23 13:37 ED Decision to Admit Stat 03/22/23 13:45 Consult Cardiology Stat Procedures Performed Operation Date: 03/22/23 16:45 Actual Procedures p Cineradiography w/Routine Exam - Carlos Alberto Minor MD, PhD p Cath, Cors with Grafts (no LV) - Carlos Alberto Minor MD, PhD Ordered Studies 03/22/23 16:29 CL Cath Imgs for PACS use only Stat Hospital Course (1) Ventricular tachycardia: Tanja Jackson is a 72 year old female who presents to the ER on March 22, 2023 following sustained ventricular tachycardia during outpatient stress echo. Ventricular tachycardia spontaneously broke without intervention after 5 minutes. She was given aspirin 324mg PO en route to the ER via EMS. EKG was unremarkable for acute ischemic changes in the ER. High sensitivity troponin increased from 5.6 to 24.6 pg/ml. Magnesium level 1.9, she was given 1g Mg sulfate IV to aim > 2. She was taken to the cardiac labor training manager showing severe multivessel coronary artery disease. Case was discussed between her primary dispatcher tow truck (Dr Stoddard) and cardiothoracic surgery (Dr Tai) at [facility] and she was accepted for transfer for evaluation of CABG vs. multivessel PCI. Continue aspirin 81mg PO daily. Metoprolol tartrate 25mg PO BID will be started tonight. Atorvastatin 40mg PO daily started. She was started on intravenous heparin without bolus which will be continued en route to [facility]. She never required any anti-arrhythmic therapy for the ventricular tachycardia which has not recurred since her stress echo. Med list below is her outpatient med list. Please see separate scanned sheet for inpatient medications. (2) Exertional angina: (3) Obstructive sleep apnea syndrome: CPAP HS (4) GERD (gastroesophageal reflux disease): Total Time Total Time Spent Total Time Spent (In Minutes): 35 Discharge Plan Discharge Items Patient Disposition: Transfer Acute Care Hospital Reason For Visit: SUSTAINED VT Discharge Diagnosis: Sustained ventricular tachycardia Triple vessel coronary artery disease Activity: As commented below Activity Comment: bed rest Non-emergency contact: Primary Care Provider Call non-emergency contact if: you have any medication questions and your symptoms worsen Follow-up/Referrals: Triny Anthony, [Primary Care Provider] - Diet: Heart Healthy Addtl Attending Provider Instructions: Tanja Jackson is a 72 year old female who presents to the ER following sustained ventricular tachycardia during outpatient stress echo therefore transported to the ER via EMS. Ventricular tachycardia spontaneously broke without intervention after 5 minutes. She was given aspirin 324mg PO en route to the ER. EKG was unremarkable in the ER. High sensitivity troponin increased from 5.6 to 24.6 pg/ml. Magnesium level 1.9, she was given 1g Mg sulfate IV to aim > 2. She was taken to the cardiac labor training manager showing severe multivessel coronary artery disease. Case was discussed between her primary cardiology Dr Stoddard and cardiothoracic surgery (Dr Tai) at [facility] and she was accepted for transfer for evaluation of CABG vs. multivessel PCI. Continue aspirin 81mg PO daily. Metoprolol tartrate 25mg PO BID will be started tonight. Atorvastatin 40mg PO daily started. She was started on intravenous heparin without bolus which will be continued en route to [facility]. She never required any anti-arrhythmic therapy for the ventricular tachycardia which has not recurred since her stress echo. Med list below is her outpatient med list. Please see separate scanned sheet for inpatient medications. Pending Studies at Discharge: No Stand-Alone Forms: [facility] Skilled Items Patient informed of condition?: Yes DNR: No Discharge Level of Care: Other Communicable Disease: No Discharge Prognosis: Stable Lines: Peripheral IV Urinary Catheter: No Medications and DC Order Prescriptions: Continued (DME) Auto Titrating CPAP Misc See Rx Instructions .ROUTE .MEDSUPPLY Qty: 1 0RF Rx Instructions: auto CPAP 5-20 with supplies DX G47.30 Lenght of need- lifetime diclofenac sodium 75 mg tablet,delayed release (DR/EC) 75 mg PO QAM Adult 50 Plus Probiotic 4 billion cell capsule 4,000 mmu cells PO QAM omeprazole 20 mg capsule,delayed release(DR/EC) 20 mg PO DAILY PRN (Reason: Heartburn) (DME) CPAP Supplies Misc See Rx Instructions .MEDSUPPLY Qty: 1 0RF Rx Instructions: Mask refitting, patient wants to try nasal pillow. G47.33 multivitamin tablet 1 tab PO QAM lisinopril 10 mg tablet 10 mg PO QAM cholecalciferol (vitamin D3) 400 unit capsule 400 units PO QAM omega 4-omy-lga-fish oil [Fish Oil] 1,000 mg (120 mg-180 mg) capsule 1 cap PO QAM Discharge Orders: Discharge Order (Routine); Ordered 03/22/23 Ordered By: Candelario Jon Admission Data Admit Date/Time: 03/22/23 14:02 Attending Provider: Candelario Jon Admit Provider: Candelario Jon Primary Care Provider: Triny Anthony Other Providers: Candelario Jon ; Miguel Angel Lee Coding Level of Care Code None Diagnoses Ventricular tachycardia I47.20 Exertional angina I20.8 Obstructive sleep apnea syndrome G47.33 GERD (gastroesophageal reflux disease) K21.9
[2023-03-22] MEDS ORDERED: METOPROLOL TARTRATE 25 MG TAB PO SCH (21:00)
[2023-03-23 00:59] LABS: Partial Thromboplastin Ratio 2.6
[2023-03-23 01:59] LABS: Partial Thromboplastin Time 74.6 Seconds (21.0-31.0)
[2023-03-23] MEDS ORDERED: lisinopril 10 MG TAB PO SCH (09:00)
[2023-03-23] MEDS ORDERED: ASPIRIN 81 MG ECTAB PO SCH (09:00)
[2023-03-23] MEDS ORDERED: METOPROLOL SUCC 25MG EXT REL TAB PO SCH (09:00)
== END 2023-03-23 01:17 | disposition short-term general hospital (02) | DRG 287 ==
LOC: ED 12:13 → EDINP 14:02 → 2S 17:23
PROC: CLB.CCG (2023-03-22 16:45)